=== PATIENT | female | born 1985 | race Caucasian/White ===

== ENCOUNTER → 2016-02-27 | Outpatient (CLI) | payer OTHER ==
[~2016-02-27] MED LIST: LEVO.075 PO; SYNT75TA PO; Z.0.BCPILL PO
== END ==
LOC: HPND 08:50
PROVIDERS: ATTEND Obstetrics & Gynecology
DX: Z36 Encounter for antenatal screening of mother (principal)
CPT/HCPCS: 36416; 76813

== ENCOUNTER → 2016-04-01 | Outpatient (CLI) | payer OTHER ==
[2016-04-05 23:53] LABS: AFP SERUM 49.3 ng/mL (()); CALCULATED GESTATIONAL AGE 18.3 (())
== END ==
LOC: CLAB 14:15
PROVIDERS: ATTEND Obstetrics & Gynecology
DX: Z34.01 Encounter for supervision of normal first pregnancy, first trimester (principal)
CPT/HCPCS: 36415; 82105

== ENCOUNTER → 2016-06-07 | Outpatient (CLI) | payer OTHER ==
[2016-06-07 09:06] LABS: HEMATOCRIT 37.8 % (35.0-46.0); REVIEW FLAG FINAL
== END ==
LOC: CLAB 07:07
PROVIDERS: ATTEND Family Medicine
DX: O99.282 Endocrine, nutritional and metabolic diseases complicating pregnancy, second trimester (principal); E03.9 Hypothyroidism, unspecified
CPT/HCPCS: 36415; 82951; 84443; 85014; 85018

== ENCOUNTER → 2016-07-02 | Outpatient (CLI) | payer OTHER ==
[2016-07-02 13:56] LABS: AUTOMATED NEUTROPHIL # 11.7 TH/MM3 (1.8-7.7); BASOPHIL # 0.1 TH/MM3 (0-0.2); BASOPHIL % 0.5 % (0.0-2.0); EOSINOPHIL # 0.2 TH/MM3 (0-0.4); EOSINOPHIL % 1.2 % (0.0-4.0); HEMATOCRIT 36.1 % (35.0-46.0); LYMPH % 12.5 % (9.0-44.0); LYMPHOCYTE # 1.8 TH/MM3 (1.0-4.8); MEAN CELL VOLUME 88.5 FL (80.0-100.0); MEAN CORPUSCULAR HEMOGLOBIN 30.4 PG (27.0-34.0); MEAN CORPUSCULAR HGB CONC 34.4 % (32.0-36.0); MONO % 5.8 % (0.0-8.0); PLATELET COUNT 240 TH/MM3 (150-450); RED BLOOD COUNT 4.09 MIL/MM3 (4.00-5.30); RED CELL DISTRIBUTION WIDTH 13.8 % (11.6-17.2); WHITE BLOOD COUNT 14.6 TH/MM3 (4.0-11.0)
[2016-07-02 13:57] LABS: HEMO FLAGS AUTO DIFF
[2016-07-02 14:19] LABS: URIC ACID 3.8 MG/DL (2.6-6.0)
[2016-07-02 14:36] LABS: MYELOCYTES 3 % (0-0)
[2016-07-02 14:37] LABS: BANDS 12 % (0-6); EOSINOPHILS 1 % (0-4); NEUTROPHIL # MANUAL DIFF 11.5 TH/MM3 (1.8-7.7); PLATELET ESTIMATE SMEAR NORMAL (NORMAL); PLATELET MORPHOLOGY ENLARGED (NORMAL); POLYS (SEG NEUTROPHILS) 64 % (16-70); SCAN/DIFF FINAL DIFF MANUAL; WBC DIFF SAMPLE 100
== END ==
LOC: CLAB 13:28
PROVIDERS: ATTEND Obstetrics & Gynecology
DX: O13.3 Gestational [pregnancy-induced] hypertension without significant proteinuria, third trimester (principal)
CPT/HCPCS: 36415; 83615; 84450; 84460; 84550; 85007; 85027

== ENCOUNTER → 2016-08-06 | Outpatient (CLI) | payer OTHER | LOC: HPND 07:49 | PROVIDERS: ATTEND Obstetrics & Gynecology | DX: O36.5930 Maternal care for other known or suspected poor fetal growth, third trimester, not applicable or unspecified (principal); Z3A.36 36 weeks gestation of pregnancy | CPT/HCPCS: 76816 ==

== ENCOUNTER → 2016-08-06 | Outpatient (CLI) | payer OTHER | LOC: CLAB 08:30 | PROVIDERS: ATTEND Family Medicine | DX: O99.280 Endocrine, nutritional and metabolic diseases complicating pregnancy, unspecified trimester (principal) | CPT/HCPCS: 36415; 84443 ==

== ENCOUNTER → 2016-08-19 | Outpatient (CLI) | payer OTHER ==
[2016-08-19 08:52] LABS: PATIENT HEIGHT 167 CMS
[2016-08-19 11:53] LABS: AUTOMATED NEUTROPHIL # 10.8 TH/MM3 (1.8-7.7); BASOPHIL % 0.2 % (0.0-2.0); EOSINOPHIL # 0.2 TH/MM3 (0-0.4); EOSINOPHIL % 1.1 % (0.0-4.0); HEMATOCRIT 40.9 % (35.0-46.0); HEMO FLAGS DIFF FINAL; LYMPHOCYTE # 2.3 TH/MM3 (1.0-4.8); MEAN CORPUSCULAR HEMOGLOBIN 29.4 PG (27.0-34.0); MEAN CORPUSCULAR HGB CONC 32.6 % (32.0-36.0); MONO % 6.4 % (0.0-8.0); NEUT % 76.3 % (16.0-70.0); PLATELET COUNT 229 TH/MM3 (150-450); RED BLOOD COUNT 4.55 MIL/MM3 (4.00-5.30); RED CELL DISTRIBUTION WIDTH 14.1 % (11.6-17.2); WHITE BLOOD COUNT 14.2 TH/MM3 (4.0-11.0)
[2016-08-19 12:17] LABS: URIC ACID 4.1 MG/DL (2.6-6.0)
[2016-08-19 12:41] LABS: CREAT 24 TIMED 69.7 MG/DL; CREATININE CLEARANCE, URINE 120 ML/MIN (75-140); TOTAL PROTEIN 24 HOUR URINE 100 MG/24HR (0-150); URINE TOTAL PROTEIN TIMED LESS THAN 5.0 MG/DL
== END ==
LOC: PLAB 08:30
PROVIDERS: ATTEND Obstetrics & Gynecology
DX: O13.3 Gestational [pregnancy-induced] hypertension without significant proteinuria, third trimester (principal)
CPT/HCPCS: 82575; 83615; 84157; 84450; 84460; 84550; 85025

== ENCOUNTER 2016-08-31 05:13 | Inpatient (IN) | payer OTHER ==
[2016-08-31] VITALS (59 sets, daily range): BP systolic 111–144; BP diastolic 67–105; PULSE 61–127; RESP 18; TEMP 97.8–98.3
[~2016-08-31] VITALS: Ht 167.6 cm; Wt 73.9 kg
[2016-08-31] MEDS ORDERED: PREN29TA PO (06:25)
[2016-08-31] MEDS ORDERED: OXYTOCIN 30 UNITS/NS 500ML PREMIX IV SCH (07:00)
[2016-08-31 07:44] LABS: BASOPHIL # 0.1 TH/MM3 (0-0.2); BASOPHIL % 0.4 % (0.0-2.0); EOSINOPHIL # 0.1 TH/MM3 (0-0.4); HEMATOCRIT 40.4 % (35.0-46.0); HEMO FLAGS DIFF FINAL; LYMPH % 16.8 % (9.0-44.0); LYMPHOCYTE # 2.5 TH/MM3 (1.0-4.8); MEAN CELL VOLUME 89.5 FL (80.0-100.0); MEAN CORPUSCULAR HEMOGLOBIN 29.6 PG (27.0-34.0); MEAN CORPUSCULAR HGB CONC 33.1 % (32.0-36.0); MONO % 7.9 % (0.0-8.0); NEUT % 73.9 % (16.0-70.0); PLATELET COUNT 229 TH/MM3 (150-450); RED BLOOD COUNT 4.51 MIL/MM3 (4.00-5.30); RED CELL DISTRIBUTION WIDTH 13.8 % (11.6-17.2); WHITE BLOOD COUNT 14.9 TH/MM3 (4.0-11.0)
[2016-08-31 08:00] LABS: BLOOD, URINE NEG (NEG); GLUCOSE,URINE NEG (NEG); KETONE, URINE NEG (NEG); NITRITE,URINE NEG (NEG); PH, URINE 6.5 (5.0-8.5); SQUAMOUS EPITHELIAL CELL URINE <1 /hpf (0-5); URINE COLOR YELLOW (YELLW/STRAW)
[2016-08-31 08:01] LABS: COMMENT (UR) CULT NOT INDICATED; CULTURE IF INDICATED CULT NOT INDICATED
[2016-08-31] MEDS ORDERED: LACTATED RINGER'S 1000 ML INJ 1,000 ML IV SCH (09:00)
[2016-08-31] MEDS ORDERED: LACTATED RINGER'S 1000 ML INJ 1,000 ML IV PRN (09:10)
--- NOTE | 2016-08-31 09:14 | PD.LABORPN ---
Subjective Subjective pt without compliants. Objective Objective Pelvic Exam: Cervix: [-] Dilatation: [-] 3 Effacement: [-] 80 Station: [-] -2 Presentation: [-] vtx Membranes: [intact or ruptured] AROM clr Uterine Contractions: [-] FHT's: Category: [-] 1 Baseline: [-] 140s Reactive: [-] Variability: [-] Decels: [-] Assessment/Plan Problem List: (1) Plan: cont Goldy Harvey MD Aug 31, 2016 09:14
[2016-08-31] MEDS ORDERED: LIDOCAINE HCL 1% 50 ML VIAL I-DERMAL PRN (09:15)
[2016-08-31] MEDS ORDERED: LIDOCAINE HCL 1% 50 ML VIAL INFIL PRN (09:15)
[2016-08-31] MEDS ORDERED: MINERAL OIL 10 ML VIAL TOPICAL PRN (09:15)
[2016-08-31] MEDS ORDERED: ONDANSETRON HCL 4 MG/2 ML VIAL IV PRN (09:15)
[2016-08-31] MEDS ORDERED: OXYTOCIN 30 UNITS-500ML PREMIX 500 ML IV ONE ×2 (09:15→15:30)
[2016-08-31] MEDS ORDERED: SODIUM CHLORID 0.9% 500 ML INJ 500 ML IV PRN (09:15)
[2016-08-31] MEDS ORDERED: CITRIC ACID-SODIUM CITRATE LIQ 30 ML UDC PO SCH (09:15)
[2016-08-31] MEDS ORDERED: SODIUM CHLOR 0.9% 1000 ML INJ 1,000 ML IV PRN (09:30)
[2016-08-31] MEDS ORDERED: fentaNYL 2MCG-BUPIV 0.125% INJ 100 ML ONE (10:06)
[2016-08-31] MEDS ORDERED: ePHEDrine/NS 25 MG/5 ML SYR IV PRN (11:15)
[2016-08-31] MEDS ORDERED: DO NOT ADMINISTER ANTICOAGULANTS PRN (11:15)
[2016-08-31] MEDS ORDERED: NO SYSTEM NARCOTICS PRN (11:15)
[2016-08-31] MEDS ORDERED: fentaNYL 2MCG-BUPIV 0.125% 100 ML EPIDURAL SCH (11:15)
--- NOTE | 2016-08-31 15:28 | PD.OB.DELI ---
Delivery Date: Aug 31, 2016 Anesthesia: Epidural, Lidocaine local to perineum Episiotomy: None Vaginal Delivery: Normal Presentation: Occiput anterior Nuchal Cord: None Delayed cord clamping (45 sec): Yes Infant: Female, Single One Minute : 8 Five Minute : 9 Weight: pending Placenta: Manual removal (partial extraction, removed intact), Intact, 3 vessel cord Laceration: Vaginal laceration (left vaginal sulcus laceration repaired with 2- 0 chromic), Perineal laceration (2nd degree perineal repaired with 2-0 and 3-0 chromic in usual fashion) Additional Information EBL 350 ml Goldy Currie MD Aug 31, 2016 15:28
[2016-08-31] MEDS ORDERED: SODIUM CHLORIDE 0.9% FLUSH 10 ML FLUSH IV FLUSH PRN (15:30)
[2016-08-31] MEDS ORDERED: oxyCODONE/ACETAMINOPHEN 5 MG/325 MG TAB PO PRN ×2 (15:30)
[2016-08-31] MEDS ORDERED: ZOLPIDEM TARTRATE 5 MG TAB PO PRN (15:30)
[2016-08-31] MEDS ORDERED: ACETAMINOPHEN 325 MG TAB PO PRN (15:30)
[2016-08-31] MEDS ORDERED: ONDANSETRON ODT 4 MG TAB PO PRN (15:30)
[2016-08-31] MEDS ORDERED: ALUMINUM/MAGNESIUM/SIMETH 30 ML CUP PO PRN (15:30)
[2016-08-31] MEDS ORDERED: LIDOCAINE HCL 1% 20 ML VIAL INFIL ONE (15:30)
[2016-08-31] MEDS ORDERED: OXYTOCIN 10 UNIT/ML AMP XX PRN (15:30)
[2016-08-31] MEDS ORDERED: MEASLES, MUMPS, RUBELLA VACCINE 0.5 ML VIAL SQ ONE (16:00)
[2016-08-31] MEDS ORDERED: DIPHTH/TETANUS/ACEL PERTUSSIS (BOOSTER) 0.5 ML VIAL/PFS IM ONE (16:00)
[2016-08-31] MEDS: ceFAZolin 1,000 MG/NS 100 ML IV SCH ×2 (16:37)
[2016-08-31] MEDS: BENZOCAINE 20% TOPICAL SPRAY 60 ML CAN TOPICAL PRN (17:42)
[2016-08-31] MEDS: IBUPROFEN 600 MG TAB PO PRN (17:42)
[2016-08-31] MEDS: WITCH HAZEL 50%/GLYCERIN 12.5% 40 PAD JAR TOPICAL PRN (17:42)
[2016-08-31] MEDS ORDERED: SODIUM CHLORIDE 0.9% FLUSH 10 ML FLUSH IV FLUSH SCH (21:00)
[2016-09-01] MEDS: ceFAZolin 1,000 MG/NS 100 ML IV SCH ×2 (00:17)
[2016-09-01] MEDS: IBUPROFEN 600 MG TAB PO PRN ×4 (01:40→20:24)
[2016-09-01 08:00] VITALS: BP 118/78; PULSE 72; RESP 18; TEMP 97.7
[2016-09-01] MEDS: DOCUSATE SODIUM 50 MG/SENNA 8.6 MG TAB PO PRN ×2 (08:08→20:24)
--- NOTE | 2016-09-01 14:15 | HHI.OB ---
Subjective Post Day: 1 Remarks pain controlled. mod lochia, josse po, +void/flatus Objective Vitals/I&O Vital Signs Date Time Temp Pulse Resp B/P Pulse Ox O2 Delivery O2 Flow Rate FiO2 09/01/16 08:00 97.7 72 18 118/78 08/31/16 20:35 98.3 76 18 129/73 08/31/16 18:00 98.0 80 18 122/91 08/31/16 16:35 18 08/31/16 16:30 73 122/72 08/31/16 16:15 70 111/83 08/31/16 16:05 18 08/31/16 16:00 71 122/67 08/31/16 15:50 18 08/31/16 15:45 72 123/76 08/31/16 15:35 18 08/31/16 15:30 81 129/94 08/31/16 15:19 70 134/76 08/31/16 15:18 98.2 18 08/31/16 15:00 70 114/69 08/31/16 14:30 127 115/83 Objective Remarks GENERAL: Well-nourished, well-developed patient. CARDIOVASCULAR: Regular rate and rhythm without murmurs, gallops, or rubs. RESPIRATORY: Breath sounds equal bilaterally. No accessory muscle use. ABDOMEN/GI: Abdomen soft, non-tender. Fundus: Firm, non-tender at umbilicus. GENITOURINARY: Light to moderate bleeding. EXTREMITIES: No cyanosis or edema, non-tender, without signs of DVT. Medications and IVs Current Medications Medications (Trade) Dose Ordered Sig/Anabella Route Start Time Stop Time Status Last Admin (Pitocin 30 Units-NS 500 ml Premix) 500 ml @ 0 mls/hr TITRATE IV 08/31/16 07:00 08/31/16 07:25 (Zofran Inj) 4 mg Q6H PRN IV 08/31/16 09:15 Mineral Oil 10 ml 10 ml UNSCH PRN TOPICAL 08/31/16 09:15 (fentaNYL 2MCG-BUPIV 0.125% INJ) 100 ml @ 0 mls/hr TITRATE EPIDURAL 08/31/16 11:15 (NS Flush) 2 ml BID IV FLUSH 08/31/16 21:00 (NS Flush) 2 ml UNSCH PRN IV FLUSH 08/31/16 15:30 (Tylenol) 650 mg Q4H PRN PO 08/31/16 15:30 (Motrin) 600 mg Q6H PRN PO 08/31/16 15:30 09/01/16 07:58 (Percocet 5-325 Mg) 1 tab Q4H PRN PO 08/31/16 15:30 (Percocet 5-325 Mg) 2 tab Q4H PRN PO 08/31/16 15:30 (Americaine 20% Top Spr) 1 spray Q4H PRN TOPICAL 08/31/16 15:30 08/31/16 17:42 (Tucks Pads) 1 applic QID PRN TOPICAL 08/31/16 15:30 08/31/16 17:42 (Chayo-Colace) 2 tab Q12H PRN PO 08/31/16 15:30 09/01/16 08:08 (Ambien) 5 mg HS PRN PO 08/31/16 15:30 (Mag-Al Plus Susp Liq) 15 ml Q8H PRN PO 08/31/16 15:30 (Zofran Odt) 4 mg Q6H PRN PO 08/31/16 15:30 Assessment/Plan Problem List: (1) Spontaneous vaginal delivery Plan: routine pp care Goldy Currie MD Sep 01, 2016 14:15
[2016-09-01 20:24] VITALS: BP 121/78; PULSE 68; RESP 18; TEMP 98.4
[2016-09-01] MEDS: BENZOCAINE 20% TOPICAL SPRAY 60 ML CAN TOPICAL PRN (20:25)
[2016-09-01] MEDS: WITCH HAZEL 50%/GLYCERIN 12.5% 40 PAD JAR TOPICAL PRN (20:25)
[2016-09-02] MEDS: IBUPROFEN 600 MG TAB PO PRN (04:15)
[2016-09-02] MEDS ORDERED: IBUP-232 PO (09:55)
--- NOTE | 2016-09-02 09:56 | HHI.DCPOC ---
Discharge Care Plan Diagnosis: (1) Spontaneous vaginal delivery Your Health Problems Are: Vaginal delivery Report Symptoms to Your Doctor -Temperature above 100.5 degrees -Redness, of incision or excessive or foul smelling drainage -Unusual pain or calf pain -Increased vaginal bleeding -Painful or difficulty urinating -Feelings of extreme sadness or anxiety after 2 weeks Goals to Promote Your Health * To prevent worsening of your condition and complications * To maintain your health at the optimal level Directions to Meet Your Goals Take your medications as prescribed Follow your dietary instruction Follow activity as directed Ensure plenty of rest for recovery Drink fluids for hydration Keep your appointments as scheduled Take your immunizations and boosters as scheduled If your symptoms worsen call your PCP, if no PCP go to Urgent Care Center or Emergency Room Smoking is Dangerous to Your Health. Avoid second hand smoke Call the 24-hour crisis hotline for domestic abuse at Goldy Currie MD Sep 02, 2016 09:56
--- NOTE | 2016-09-02 10:02 | HHI.DS ---
Admission Date Aug 31, 2016 at 05:13 Discharge Date: Sep 02, 2016 Admitting Diagnosis IUP @ Term, Induction, GBS neg Diagnosis: (1) Spontaneous vaginal delivery Delivery Date: Aug 31, 2016 Vaginal Delivery: Normal Infant: Female, Single Hospital Course pt presents for induction of labor with pitocin. she had an with manual extraction of placenta. she did well and was voiding, passing gas, with BMs and stable for d/c home. Pt Condition on Discharge: Stable Discharge Disposition: Discharge Home Discharge Instructions Diet Instructions: As Tolerated, No Restrictions Additional Diet Instructions: Drink at least 8 - 16 oz bottles of water a day Activities You Can Perform: Shower Only-No Bath, Sitz Bath Activities to Avoid: Lifting/Bending, Sexual Activity Additional Activity Instruc.: No driving until off pain medications Do not lift anything heavier than your baby in an carrier Goldy Currie MD Sep 02, 2016 10:02
[2016-09-02 10:20] VITALS: BP 125/86; PULSE 85; RESP 16; TEMP 98.5
== END 2016-09-02 19:34 | disposition home or self-care (01) | DRG 775 ==
LOC: H2EA 05:13 → H1EA 17:02
PROVIDERS: ADMIT Obstetrics & Gynecology; ATTEND Obstetrics & Gynecology
PROC: 10E0XZZ Delivery of Products of Conception, External Approach (ICD-10-PCS; principal; 2016-08-31)
PROC: 0KQM0ZZ Repair Perineum Muscle, Open Approach (ICD-10-PCS; 2016-08-31)
PROC: 3E033VJ Introduction of Other Hormone into Peripheral Vein, Percutaneous Approach (ICD-10-PCS; 2016-08-31)
DX: O99.284 Endocrine, nutritional and metabolic diseases complicating childbirth (principal); Z37.0 Single live birth; E03.1 Congenital hypothyroidism without goiter; Z3A.40 40 weeks gestation of pregnancy; O70.1 Second degree perineal laceration during delivery
CPT/HCPCS: 81001; 85025; 86900; 86901; J0690; J2590; J7120